=== PATIENT | male | born 1965 | race Asian ===

== ENCOUNTER 2022-12-10 19:20 | Emergency (ER) | payer OTHER, SELFPAY ==
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
[2022-12-10 19:43] VITALS: BP 138/74; PULSE 75; RESP 18; O2SAT 98; BMI 27.1
[2022-12-10] MEDS: Ketorolac Tromethamine 30 MG/ML VIAL IM (19:54)
[2022-12-10] MEDS: Lidocaine 4 % Patch ADH..PATCH 1 PATCH TRANSDERMA (19:57)
--- NOTE | 2022-12-10 20:00 | PC.NURSE ---
pt medicated per AUG for
== END 2022-12-10 20:17 | disposition home or self-care (01) ==
PROVIDERS: Emergency Provider Emergency Medicine
DX: Z04.1 Encounter for examination and observation following transport accident (principal); M54.50 Low back pain, unspecified; M54.2 Cervicalgia
CPT/HCPCS: 96372; 99283; 99284; J1885

== ENCOUNTER 2023-02-26 13:24 | Outpatient (AMB) | payer OTHER, SELFPAY ==
--- NOTE | 2023-02-26 13:26 | A.OFFPC_ITS ---
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 Transferring care from Dr Hinojosa Medical records have not been requested and have received. Manager Lvn Required: No Communication Signals Intelligence: Not Required per policy Accompanied by: Self / Same As Patient Allergies No Known Allergies Allergy (Verified 02/26/23 13:41) Medication List - Last Reconciled 02/26/23 by ARELI Adams No Known Home Meds Tobacco use date assessed: 02/26/23 Dental Screening Dental Screen Date: 02/26/23 Did you have a dental visit in the last 12 months?: No Did you have a dental problem in the last 6 months where you did not have access to dental care?: No Was dental information given to patient?: Patient has dentist HPI HPI Comments History of Present Illness Details 58-year-old male new patient presents today to establish care. Past medical history significant for hypercholesteremia. Patient reports dry itchy skin to left side and right upper thigh on going for months. Patient denies any new lotions, creams, soaps, detergents or medications. Patient reports uses hezo-fpl-jqwcajo hydrocortisone cream as needed with minimal effect. Patient denies chest pain, palpitations, shortness of breath and syncope. Eye exam: Recommended every couple years. Colonoscopy: Completed by Dr. Matthews 05/2019, recommended 5 year follow-up due to suboptimal exam. [facility], [facility] Family History (Updated 02/26/23 @ 13:43 by ARELI Adams) Mother No problems noted. 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 1. Little interest or pleasure in doing things: not at all 2. Feeling down, depressed, or hopeless: not at all 3. Trouble falling or staying asleep, or sleeping too much: not at all 4. Feeling tired or having little energy: not at all 5. Poor appetite or overeating: not at all 6. Feeling bad about yourself - or that you are a failure or have let yourself or your family down: not at all 7. Trouble concentrating on things, such as reading the newspaper or watching television: not at all 8. Moving or speaking so slowly that other people could have noticed. Or the opposite - being so fidgety or restless that you have been moving around a lot more than usual: not at all 9. Thoughts that you would be better off or of hurting yourself in some way: not at all Total score: 0 Depression Screening Interpretation: Negative 05546 - PHQ-9 Billing: Yes Source: Developed by Drs. Matt Kennedy, Renetta Chand, Candido Gayle and colleagues, with an educational jayshree from [employer]. Thrive Questionnaire Date Thrive assessed: 02/26/23 I am a: Patient What is your living situation today?: I have a steady place to live Within the past 12 months, did the food you bought not last and you didn't have the money to get more?: Never true Within the past 12 months, did you worry whether your food would run out before you got money to buy more?: Never true Do you have trouble paying for medicines?: No Do you have trouble getting transportation to medical appointments?: No Do you have trouble paying your heating and electricity bill?: No Do you have trouble taking care of your child, family member or friend?: No Do you have trouble with day-to-day activities such as bathing, preparing meals, shopping, managing finances, etc.?: No Are you currently unemployed and looking for a job?: No Are you interested in more education?: No Currently or been in a relationship where the following occur: no concerns reported AUDIT C Alcohol Use Questionnaire (AUDIT-C) 1. How often do you have a drink containing alcohol?: Never Total Score: 0 SEAN-7 AMB Questionnaire SEAN-7 Date SEAN - 7 assessed: 02/26/23 Feeling nervous, anxious, or on edge: 0 = Not at all Not being able to stop or control worryin = Not at all Worrying too much about different things: 0 = Not at all Trouble relaxin = Not at all Being so restless that it is hard to sit still: 0 = Not at all Becoming easily annoyed or irritable: 0 = Not at all Feeling afraid as if something awful might happen: 0 = Not at all Total SEAN-7 score (0-4 normal; 5-9 mild; 10-14 moderate; 15-21 severe): 0 Source: Developed by Drs. Matt Kennedy, Renetta Chand, Candido Gayle and colleagues, with an educational jayshree from [employer]. SEAN-7 Assessment Billing SEAN-7 Assessment Tool: SEAN-7 Assessment 16991 Review of Systems Const Denies chills, Denies fatigue, Denies fever(s) and Denies poor appetite Eyes Denies no additional complaints ENT Reports Normal hearing present Card Denies chest pain, Denies syncope, Denies rapid heart rate and Denies dyspnea Resp Denies cough and Denies dyspnea GI Denies change in stool character, Denies constipation, Denies diarrhea, Denies nausea and Denies vomiting Denies dysuria, Denies urinary frequency and Denies urinary urgency Skin/Breast Reports dry skin (Left side and right upper thigh ) Neuro Reports Normal hearing present, Denies confusion and Denies syncope Psych Denies confusion Endo Denies fatigue Physical exam (Primary Care) Vital Signs: Last Vital Signs Pulse 71 02/26/23 13:28 BP 130/74 02/26/23 13:28 Pulse Ox 96 02/26/23 13:28 Oxygen Delivery Method Room Air 02/26/23 13:28 BMI result Body Mass Index 27.0 Tobacco/Smoking Status: Tobacco use Status Tobacco use date assessed 02/26/23 02/26/23 13:36 Patient Tobacco Use Status Never used Tobacco 02/26/23 13:44 e-Cigarette/Vaping Use Never Used 02/26/23 13:44 PHQ-9: PHQ-9 Score PHQ-9: Total score 0 02/27/23 05:58 Depression Screening Interpretation: Negative Thrive Assessment: Date of Thrive Assessment Date Thrive assessed 02/26/23 02/26/23 13:36 Currently or been in a relationship where the following occur: no concerns reported Const General: No confusion Orientation/consciousness: No confusion HENMT Head: Yes normocephalic and Yes atraumatic Ears: external ears normal and TM's normal bilaterally General nose exam: Normal external nose present and Normal nasal mucous membranes and turbinates present Face and sinus: Yes normal facial exam and Yes sinuses nontender Mouth: moist mucous membranes Throat: Yes tonsils normal Eyes Conjunctivae: conjunctivae normal Sclerae: sclerae normal Pupils: Equal, round and reactive pupils present and Pupils normal by confrontation EOM: EOMs intact bilaterally Direct Ophthalmoscopy: normal light reflex Neck Neck: Yes no lymphadenopathy and Yes supple Thyroid: Thyroid normal Chest Chest palpation & inspection: normal inspection of the chest Resp Effort & Inspection: normal respiratory effort Auscultation: clear to auscultation bilaterally, no crackles, no rhonchi and no wheezes Cardio Rate: regular rate Rhythm: regular rhythm Peripheral pulses: radial pulses present and dorsalis pedis present GI Inspection: Yes normal to inspection Palpation (GI): Soft to palpation, nontender and No hepatosplenomegaly present Auscultation: normoactive bowel sounds Skin Other: Dry appearing hyperpigmented skin noted to left abdomen wrapping around to left flank and noted on right upper thigh Neuro General: No confusion Cranial nerves: Yes Equal, round and reactive pupils present and Yes Normal hearing present Cognition (Neuro): normal cognition Gait exam (Neuro): Normal gait present Motor exam (neuro): 5/5 motor strength present throughout Deep tendon reflexes (DTR's): Right brachioradialis reflex intensity grade: 2+, Left brachioradialis reflex intensity grade: 2+, Right patellar reflex intensity grade: 2+ and Left patellar reflex intensity grade: 2+ Extrem General: No edema Assessment and Plan Assessment & Plan (1) Dermatitis: Code(s): L30.9 - Dermatitis, unspecified Plan: Triamcinolone cream b.i.d. x 2 weeks sent to patient's pharmacy. If no improvement patient advised to follow-up. (2) Hypercholesteremia: Code(s): E78.00 - Pure hypercholesterolemia, unspecified Plan: Fasting lipid panel ordered. Avoid fried foods, chicken skin, eggs, butter,margarine, pastries and? red meat. (3) Physical exam, annual: Code(s): Z00.00 - Encounter for general adult medical examination without abnormal findings Orders: Orders Comprehensive [place]. Panel Fast 02/26/23 Z13.1 - Encounter for screening for diabetes mellitus Lipid Panel 02/26/23 Z13.220 - Encounter for screening for lipoid disorders TSH reflex Free T4 02/26/23 Z13.29 - Encounter for screening for other suspected endocrine disorder Complete Blood Count Auto Diff 02/26/23 Z13.0 - Encounter for screening for diseases of the blood and blood-forming organs and certain disorders involving the immune mechanism PSA,Total (Free>4and<10) Today Z12.5 - Encounter for screening for malignant neoplasm of prostate Medications: New triamcinolone acetonide 0.025% 1 appl topical BID 15 grams 0RF L30.9 - Dermatitis, unspecified, Z00.00 - Encounter for general adult medical examination without abnormal findings Coding Level of Care Code New Pt Prev Care 40-64y(27132) Diagnoses Dermatitis L30.9 Hypercholesteremia E78.00 Physical exam, annual Z00.00 Additional Codes SEAN-7 Assessment Billing - SEAN-7 Assessment Tool: SEAN-7 Assessment 79773 ([id number])
[2023-02-26 13:28] VITALS: BP 130/74; PULSE 71; O2SAT 96; BMI 27.0
== END 2023-02-26 14:37 | disposition home or self-care (01) ==
PROVIDERS: Visit Provider Nurse Practitioner Family
DX: L30.9 Dermatitis, unspecified (principal); E78.00 Pure hypercholesterolemia, unspecified; Z00.00 Encounter for general adult medical examination without abnormal findings
CPT/HCPCS: 99386

== ENCOUNTER 2023-03-07 13:01 | Outpatient (REF) | payer OTHER, SELFPAY ==
[2023-03-07 13:14] LABS: MANUAL DIFF FLAG NO
[2023-03-07 13:53] LABS: Basophils Percent Auto 0.3 % (0-2); Eosinophils Absolute Auto 0.2 X10*3/uL (0.0-0.4); Eosinophils Percent Auto 3.3 % (0-4); Hematocrit 43.6 % (42.0-52.0); Hemoglobin 14.6 g/dl (14.0-18.0); Imm Gran Abs Auto 0.03 X10*3/uL (0.00-0.03); Imm Gran Pct Auto 0.5 % (0.0-0.4); Lymphocytes Absolute Auto 2.5 X10*3/uL (1.2-4.9); Mean Corpuscular HGB Conc 33.5 g/dl (31.0-36.0); Mean Corpuscular Volume 83.7 fL (80.0-98.0); Mean Platelet Volume 10.3 fL (9.4-12.4); Monocytes Absolute Auto 0.4 X10*3/uL (0.1-1.2); Monocytes Percent Auto 6.1 % (2-11); Neutrophils Percent Auto 48.8 % (45-73); Platelet Count 159 X10*3/uL (160-400); Red Blood Count 5.21 X10*6/uL (4.60-5.80); Red Cell Distribution Width 13.2 % (11.0-16.0); White Blood Count 6.1 X10*3/uL (4.8-10.8)
[2023-03-07 14:42] LABS: PSA,Total (Free>4and<10) 0.91 ng/mL (0.00-4.00)
[2023-03-07 14:52] LABS: Alanine Aminotransferase 17 U/L (0-40); Albumin Level 4.4 g/dL (3.5-5.0); Alkaline Phosphatase 58 U/L (39-117); Anion Gap 9 (12-20); Aspartate Amino Transferase 18 U/L (5-37); Bilirubin Total 0.5 mg/dL (0.0-1.0); Blood Urea Nitrogen 22 mg/dL (9-16); Calcium 9.8 mg/dL (8.4-10.2); Carbon Dioxide 28 mmol/L (22-29); Chloride 110 mmol/L (96-108); Cholesterol 251 mg/dL (<200); Estimated Glomerular Filt Rate > 60; Glucose Fasting 94 mg/dL (60-99); HDL Cholesterol 49 mg/dL (>40); LDL Cholesterol Calculated 183 mg/dL (<100); Potassium 4.2 mmol/L (3.3-5.1); Sodium 143 mmol/L (135-145); TSH reflex Free T4 1.83 uIU/mL (0.32-4.0); Total Protein 7.4 g/dL (6.5-8.0); Triglycerides 97 mg/dL (<150)
== END 2023-03-07 13:02 | disposition home or self-care (01) ==
LOC: HO.LAB 13:01
PROVIDERS: PCP Nurse Practitioner Family; Visit Provider Nurse Practitioner Family
DX: Z13.220 Encounter for screening for lipoid disorders (principal); Z13.0 Encounter for screening for diseases of the blood and blood-forming organs and certain disorders involving the immune mechanism; Z13.29 Encounter for screening for other suspected endocrine disorder; Z12.5 Encounter for screening for malignant neoplasm of prostate
CPT/HCPCS: 36415; 80053; 80061; 84153; 84443; 85025

== ENCOUNTER 2023-05-05 13:49 | Emergency (ER) | payer OTHER, SELFPAY ==
--- NOTE | ~2023-05-05 | XR_ITS ---
EXAMINATION: CHEST 2 VIEWS CLINICAL INFORMATION: cough. COMPARISON: No recent pertinent prior studies are available for comparison. TECHNIQUE: PA and lateral views of the chest obtained. FINDINGS: The lungs are well expanded. No focal infiltrate, effusion, edema, or pneumothorax. Cardiac and mediastinal silhouettes are within normal limits for technique. No acute bony abnormality seen XR/XR chest 2V IMPRESSION: No evidence of acute disease
[2023-05-05 13:59] VITALS: BP 165/91; PULSE 82; RESP 18; TEMP 37.1; O2SAT 99; BMI 27.1
--- NOTE | 2023-05-05 14:00 | ED_ITS ---
HPI - URI/Sore Throat General Chief Complaint: Upper Respiratory Symptoms Stated Complaint: Cough/Fever Time Seen by Provider: 05/05/23 14:10 History of Present Illness HPI Narrative: patient complains of cold symptoms for 5 days, main complaint is congestion and runny nose with a mild cough not productive of sputum no shortness of breath no chest pain, a very mild sore throat but he is tolerating p.o. easily drinking easily, no nausea vomiting or diarrhea no stiff neck no headache Related Data Previous Rx's Medication Instructions Recorded triamcinolone acetonide 0.025 % 1 appl topical BID #15 grams 02/26/23 topical cream oxymetazoline 0.05 % nasal spray 2 spray intranasal Q12H PRN nasal 05/05/23 congestion 5 days #22 mL Allergies Allergy/AdvReac Type Severity Reaction Status Date / Time No Known Allergies Allergy Verified 05/05/23 13:59 [facility] Past Medical History Source: nursing notes reviewed Family History Family History (Updated 02/26/23 @ 13:43 by ARELI Adams) Mother No problems noted. 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 Cognitive needs: No Hearing needs: No Vision needs: Yes (glasses) Physical Exam Vital Signs: Vital Signs: Last Vital Signs Temp 98.7 F 05/05/23 13:59 Pulse 82 05/05/23 13:59 Resp 18 05/05/23 13:59 BP 165/91 H 05/05/23 13:59 Pulse Ox 99 05/05/23 13:59 O2 Del Method Room Air 05/05/23 13:59 BMI result Body Mass Index 27.1 general appearance comfortable no distress The ears are clear no redness of tympanic membranes no perforated membrane no swelling of canal Eyes no redness or discharge The pharynx no redness swelling or exudate voice is normal membranes are moist Neck is supple Chest clear to auscultation with full symmetric equal breath sounds Heart no murmur Abdomen soft nontender Extremities range motion x4 Skin no obvious rash Course Course Course Narrative: RME: 58yo M w/no sig PMHx c/o sore throat, rhinorrhea, subj fever, productive cough. denies CP Viral testing, Rapid strep & CXR ordered Full HPI, ROS and PE to be performed by primary ED provider. testing for COVID flu and strep are negative, chest x-rays negative Physical exam was normal, main complaint was runny nose and congestion and patient is advised he likely has a viral illness and well-appearing patient is discharged Medical Decision Making Lab Data Labs: Lab Results 05/05/23 Range/Units 14:11 COVID-19 (ALYSE) Negative (Negative) COVID-19 Clin Com See Note Influenza Type A (EJ) Negative (Negative) Influenza Type B (EJ) Negative (Negative) Influenza A & B Note See Note S. pyogenes GrpA EJ Negative (Negative) Discharge Plan Discharge Clinical Impression: Viral infection Patient Disposition: Home, Self-Care Additional Instructions: you likely have of viral infection or a cold which has to get better on its own usually in 1-2 weeks from when it starts You were written for some allergy medicines cetirizine and Flonase which is a steroid spray for allergies The best nquz-igo-ajrnkad medication for nasal congestion is oxymetazoline which is a nasal spray which lasts for 12 hours and usually will clear nasal congestion for up to 12 hours The problem is some people get a rebound effect where if use the medication for too long, more than 5 days it may actually worsen nasal congestion So use the medication for 5 days or less Return any time any worse condition or concern Follow with her doctor as needed Prescriptions: New oxymetazoline 0.05 % spray,non-aerosol 2 spray intranasal Q12H PRN (Reason: nasal congestion) 5 Days Qty: 22 0RF No Action triamcinolone acetonide 0.025 % cream 1 appl topical BID Qty: 15 0RF
--- NOTE | 2023-05-05 14:11 | ED.URI ---
HPI - URI/Sore Throat General Chief Complaint: Upper Respiratory Symptoms Stated Complaint: Cough/Fever Time Seen by Provider: 05/05/23 14:10 History of Present Illness HPI Narrative: There is already sign note for this patient in the computer for this visit by me Related Data Previous Rx's Medication Instructions Recorded triamcinolone acetonide 0.025 % 1 appl topical BID #15 grams 02/26/23 topical cream oxymetazoline 0.05 % nasal spray 2 spray intranasal Q12H PRN nasal 05/05/23 congestion 5 days #22 mL Allergies Allergy/AdvReac Type Severity Reaction Status Date / Time No Known Allergies Allergy Verified 05/05/23 13:59 [facility] Family History Family History (Updated 02/26/23 @ 13:43 by ARELI Adams) Mother No problems noted. 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 pyogenes GrpA EJ Negative (Negative) Discharge Plan Discharge Clinical Impression: Viral infection Patient Disposition: Home, Self-Care Additional Instructions: you likely have of viral infection or a cold which has to get better on its own usually in 1-2 weeks from when it starts You were written for some allergy medicines cetirizine and Flonase which is a steroid spray for allergies The best ttlj-ita-qcivibj medication for nasal congestion is oxymetazoline which is a nasal spray which lasts for 12 hours and usually will clear nasal congestion for up to 12 hours The problem is some people get a rebound effect where if use the medication for too long, more than 5 days it may actually worsen nasal congestion So use the medication for 5 days or less Return any time any worse condition or concern Follow with her doctor as needed Prescriptions: New oxymetazoline 0.05 % spray,non-aerosol 2 spray intranasal Q12H PRN (Reason: nasal congestion) 5 Days Qty: 22 0RF No Action triamcinolone acetonide 0.025 % cream 1 appl topical BID Qty: 15 0RF Interventions: ED Discharge Assessment Last Done: 05/05/23 15:31 Discharge Date/Time: 05/05/23 15:32
[2023-05-05 14:35] LABS: IDNOW Serial# 08D9AD1C; Strep A Nucleic Acid Negative (Negative)
[2023-05-05 14:36] LABS: COVID-19 Test Negative (Negative); IDNOW Serial# BCCEAD1C
[2023-05-05 14:38] LABS: IDNOW Serial# 9DB6401D; Influenza A Negative (Negative); Influenza B2 Negative (Negative)
== END 2023-05-05 15:32 | disposition home or self-care (01) ==
PROVIDERS: Physician Assistant; Emergency Provider Emergency Medicine; PCP Nurse Practitioner Family
DX: B34.9 Viral infection, unspecified (principal); R05.9 Cough, unspecified; Z11.52 Encounter for screening for COVID-19
CPT/HCPCS: 71046; 87502; 87635; 87651; 99282; 99283

== ENCOUNTER 2023-07-18 16:13 | Emergency (ER) | payer OTHER, SELFPAY ==
--- NOTE | ~2023-07-18 | XR_ITS ---
EXAMINATION: XR WRIST, LEFT XR HAND, LEFT CLINICAL INFORMATION: Fall COMPARISON: None available. TECHNIQUE: PA, lateral, and oblique views of the left wrist and PA, lateral, and oblique views of the left hand FINDINGS: LEFT WRIST: There is a comminuted intra-articular fracture involving the distal radius with minimal displacement of fracture fragments and no significant fracture fragment angulation. No ulnar fracture is seen. LEFT HAND: The bones and soft tissues are normal. No fracture. Alignment is anatomic. Joint spaces are maintained. No erosions or soft tissue calcifications. XR/XR hand wrist LT IMPRESSION: Comminuted intra-articular fracture involving the distal radius with minimal displacement of fracture fragments and no significant fracture fragment angulation.
[2023-07-18 16:50] VITALS: BP 117/68; PULSE 77; RESP 16; TEMP 36.6; O2SAT 99; BMI 25.8
--- NOTE | 2023-07-18 16:52 | ED.EXTPRO ---
HPI - Extremity Problem General Chief complaint: Extremity Injury, Upper Stated complaint: fell, left wrist injury Time Seen by Provider: 07/18/23 17:05 Source: patient, RN notes reviewed and old records reviewed Mode of arrival: ambulatory History of Present Illness HPI Narrative: 58-year-old male with a past medical history of HLD presenting to the ED complaining of left hand/wrist pain and swelling s/p mechanical trip and fall on ice this morning around 08:00AM. States slipped falling backwards, catching self with LUE, denies head trauma or LOC. Denies taking anticoagulation. Denies injury to other area including neck/back pain, headache, abdominal pain, numbness, tingling MD Complaint: extremity pain and extremity swelling Related Data Previous Rx's Medication Instructions Recorded triamcinolone acetonide 0.025 % 1 appl topical BID #15 grams 02/26/23 topical cream oxymetazoline 0.05 % nasal spray 2 spray intranasal Q12H PRN nasal 05/05/23 congestion 5 days #22 mL Allergies Allergy/AdvReac Type Severity Reaction Status Date / Time No Known Allergies Allergy Verified 05/05/23 13:59 Review of Systems Review of Systems: Constitutional: No Fever, No Chills ENT/Mouth: No Ear Pain, No Nasal Congestion, No sore throat, No Rhinorrhea, No Swallowing Difficulty Cardiovascular: No Chest Pain, No SOB Respiratory: No Cough Gastrointestinal: No Nausea, No Vomiting, No Diarrhea, No Constipation, No Abdominal pain Musculoskeletal: + joint pain, No Myalgias, + Joint Swelling Skin: No Skin Lesions, No rash Neuro: No Weakness, No Numbness, No Paresthesias Yes all other systems are reviewed and are negative Constitutional: Constitutional: Reports as per [facility] [place] Past Medical History Attestation statement: The following information was validated with the patient. Source: old records reviewed Onset Date is defined in the Problem List Problems that require an onset date and time if occurred within 24 hrs of arrival to the ED Aortic Dissection and Rupture; Neurologic impairment; Cardiopulmonary Arrest; Endotracheal Intubation; Insertion or Replacement of Mechanical Circulatory Assist Device Family History Family History Mother No problems noted. 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 Cognitive needs: No Hearing needs: No Vision needs: Yes (glasses) Physical Exam Vital Signs: Vital Signs: Last Vital Signs Temp 98 F 07/18/23 16:50 Pulse 76 07/18/23 17:00 Resp 16 07/18/23 18:36 BP 113/72 07/18/23 17:00 Pulse Ox 97 07/18/23 17:00 O2 Del Method Room Air 07/18/23 17:00 BMI result Body Mass Index 25.8 Const: General: cooperative, healthy appearing and no acute distress Orientation/consciousness: patient oriented x3 Limitations: no limitations HEENT: Head: Yes normal to inspection and Yes atraumatic Ears: hearing grossly normal bilaterally General nose exam: Normal external nose present Face and sinus: Yes normal facial exam Eyes: General: appearance normal, both eyes and all related structures EOM: EOMs intact bilaterally Neck: Neck: Yes normal visual inspection and Yes no meningeal signs Resp: Effort & Inspection: normal respiratory effort and no respiratory distress Auscultation: clear to auscultation bilaterally Cardio: Rate: regular rate Heart sounds: S1 normal heart sound present and S2 normal heart sound present Skin: Rashes: no rashes Wounds: no wounds Neuro: General: patient oriented x3, tone normal and no meningeal signs Cranial nerves: Yes CN's II-XII intact bilaterally Gait exam (Neuro): Normal gait present Extrem: Other: Left wrist with noted swelling/deformity. Diffusely tender to palpation. Limited ROM secondary to pain. Left hand with mild tenderness. Decreased thumb to pinky opposition secondary to pain. Neurovascularly intact. No crepitus. Left elbow nontender. Extension/flexion and pronation/supination intact. Shoulder nontender Course Course Course Narrative: RME- 58-year-old male presents for evaluation of left hand and wrist pain after falling on an outstretched hand. He slipped on the ice. Denies any head strike XR hand wrist LT IMPRESSION: Comminuted intra-articular fracture involving the distal radius with minimal displacement of fracture fragments and no significant fracture fragment angulation. > sugar-tong splint applied. Patient is to follow-up with orthopedics Results discussed with patient including worrisome signs and symptoms and strict return precautions, and when to return to the emergency department. They verbalized understanding and feel safe for discharge at this time. Medications Administered Discontinued Medications Generic Name Dose Route Start Last Admin Trade Name Freq PRN Reason Stop Dose Admin Ibuprofen 800 mg 07/18/23 17:27 07/18/23 17:34 Ibuprofen 800 Mg Tablet PO 07/18/23 17:28 800 mg ONCE ONE Administration Medical Decision Making Medical Decision Making MDM Narrative: 58-year-old male with a past medical history of HLD presenting to the ED complaining of left hand/wrist pain and swelling s/p mechanical trip and fall on ice this morning around 08:00AM. On exam vital signs stable, NAD, nontoxic appearing, physical exam as noted above. Concern for fracture versus sprain. Plan: X-rays, pain control Please refer to course for remaining clinical decision making, interpretation of labs/imaging results, and discussions with consultants and/or family members. Differential Diagnosis Differential Diagnoses: The differential diagnosis associated with the presentation includes As above Independent Interpretation I performed an independent interpretation of an: Plain X-Ray Radiology Impression Discussion of test interpretation with radiology: I have reviewed the radiologist's reading. External Record Review External record reviewed: Inpatient record, Office record, Outpatient record, Prior outpatient labs, Prior outpatient radiology, Primary care record and Outside ED record Tests considered The following testing was considered but not selected: As above Prescription Management I considered prescription management with: Pain Medication Procedures Orthopedic Splinting/Casting Injury #1: Side: left Upper Extremity Injury Location: wrist Upper Extremity Immobilizer: sling/shoulder immobilizer and sugar tong splint Discharge Plan Discharge Clinical Impression: Distal radial fracture Patient Disposition: Home, Self-Care Instructions: Wrist Fracture in Adults (ED) Additional Instructions: You have a fracture/broken wrist. Please keep splint on, dry and clean Ice and elevate You need to follow-up with Orthopedics, please call in the morning to make an appointment in 1 week. Please take Tylenol and Motrin for pain/swelling If fingers become increasingly swollen, numb, or discolored her pain is unbearable remove splint return to the ED immediately Prescriptions: No Action oxymetazoline 0.05 % spray,non-aerosol 2 spray intranasal Q12H PRN (Reason: nasal congestion) 5 Days Qty: 22 0RF triamcinolone acetonide 0.025 % cream 1 appl topical BID Qty: 15 0RF Referrals: [facility] [Provider Group] - 1 week
[2023-07-18 17:00] VITALS: BP 113/72; PULSE 76; RESP 18; O2SAT 97
[2023-07-18] MEDS: Ibuprofen 800 MG TABLET PO (17:34)
--- NOTE | 2023-07-18 17:35 | PC.NURSE ---
this rn medicated pt per aug for 9/10 left hand pain.
[2023-07-18 18:36] VITALS: RESP 16
== END 2023-07-18 19:35 | disposition home or self-care (01) ==
PROVIDERS: Emergency Provider Emergency Medicine; PCP Nurse Practitioner Family
DX: S52.502A Unspecified fracture of the lower end of left radius, initial encounter for closed fracture (principal); M25.532 Pain in left wrist; W00.0XXA Fall on same level due to ice and snow, initial encounter; Y93.9 Activity, unspecified; Y92.9 Unspecified place or not applicable; Y99.9 Unspecified external cause status
CPT/HCPCS: 29125; 73110; 73130; 99283; 99284

== ENCOUNTER 2023-07-25 10:19 | Outpatient (AMB) | payer OTHER, SELFPAY ==
--- NOTE | 2023-07-25 10:26 | MHC.OFFVIS ---
Intake Vital Signs 07/25/23 10:27 Height 5 ft 8 in Weight 170 lb BMI 25.8 Intake Visit Reasons: fc- Distal radial fracture left Intake Note: Taylor a 58 year old male who is right hand dominant, presents today for an ER follow up of right distal radial fx on 07/18/23. Patient reports that he tripped and fell on ice, he presented to [facility] the same day where xrays were taken and placed in a splint. Currently states his pain is very mild. Denies numbness or tingling. Xrays updated in office. Allergies No Known Allergies Allergy (Verified 07/25/23 10:28) HPI fc- Distal radial fracture left HPI Details 58-year-old right hand dominant male who presents to the office today for an ER follow-up of right wrist injury s/p tripping and falling on ice, 07/18/23. He was seen at ER the same day where x-rays were performed and he was placed in a splint. He currently states he has minimal pain in his wrist which comes with ROM. He rates the pain as about 2 on the scale of 0-10. He denies any numbness or tingling. [facility] Family History Mother No problems noted. 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 There is trace swelling and bruising over the distal radius with tenderness over the fracture site. There is no pain over the elbow, negative forearm squeeze test. He has full range of motion of the elbow. He can fully extend all digits and make a closed fist. Pulses are present and she is neurovascularly intact. Office Procedures Casting/Splints 23378-Vxth/Wrist Cast Application Procedure code (CPT) selection complete Fracture Care Fracture Billing Code: Fracture Billing Code Results Reviewed Results Reviewed: Xrays were obtained in the office today and personally reviewed by me of the left wrist show minimally dispalced, intraarticular distal radius fracture Assessment & Plan Assessment & Plan (1) Distal radius fracture, left: Code(s): S52.502A - Unspecified fracture of the lower end of left radius, initial encounter for closed fracture Qualifiers: Encounter type: initial encounter Fracture type: closed Fracture morphology: unspecified fracture morphology Qualified Code(s): S52.502A - Unspecified fracture of the lower end of left radius, initial encounter for closed fracture Plan I explained to the patient the extent of the injury and options available. We can treat this conservatively but will have to watch him very closely to make sure there is no displacement. He would have to do no lifting more than a cell phone. This would mean no lifting, carrying, pushing, pulling, or repetitive use of the right upper extremity at work/home. I did explain to him that conservative treatment would likely be a cast for 6 weeks. If there is some displacement that occurs, we may need to discuss surgical intervention which could require pinning versus plate and screws. I also educated him on the risk factors of smoking and the effect that it can have on bone healing. He does understand all this and will see me back in a week with Dr. Ni in the office for repeat x-rays. Orders: Orders XR wrist LT min 3V Today M25.532 - Pain in left wrist Patient Instructions: Scribed for Vianca Choudhury PA-C, by Dirk Loja vice president medical affairs, on 07/25/2023 at 10:30 AM EST. IVianca PA-C, have personally reviewed and agree with the information entered by the scribe. Coding Level of Care Code New Pt Level 3 (88998) Diagnoses Closed fracture of distal end of left radius, unspecified fracture morphology, initial encounter S52.502A Encounter type: initial encounter Fracture type: closed Fracture morphology: unspecified fracture morphology CPT Codes Casting - CPT: 40102-Lbxl/Wrist Cast Application ([id number]) Fracture Care - Fracture Billing Code: Fracture Billing Code ([id number])
[2023-07-25 10:27] VITALS: BMI 25.8
== END 2023-07-25 11:33 | disposition home or self-care (01) ==
PROVIDERS: PCP Nurse Practitioner Family; Visit Provider Physician Assistant
DX: S52.572A Other intraarticular fracture of lower end of left radius, initial encounter for closed fracture (principal)
CPT/HCPCS: 25600; 99203

== ENCOUNTER 2023-07-25 14:45 | Outpatient (REF) | payer OTHER, SELFPAY ==
--- NOTE | ~2023-07-25 | XR_ITS ---
EXAMINATION: XR WRIST, LEFT CLINICAL INFORMATION: Pain COMPARISON: Radiographs 07/18/2023 TECHNIQUE: PA, lateral, and oblique views of the left wrist. FINDINGS: Again seen is a intra-articular mildly comminuted fracture of the distal radius in unchanged alignment without significant periosteal reaction or bridging bony callus formation. Joint spaces are maintained. Soft tissues are unremarkable. XR/XR wrist LT min 3V IMPRESSION: Again seen is a intra-articular mildly comminuted fracture of the distal radius in unchanged alignment without significant periosteal reaction or bridging bony callus formation.
== END 2023-07-25 14:46 | disposition home or self-care (01) ==
LOC: HO.HOSX 14:45
PROVIDERS: Visit Provider Physician Assistant
DX: M25.532 Pain in left wrist (principal); S52.502A Unspecified fracture of the lower end of left radius, initial encounter for closed fracture; X58.XXXA Exposure to other specified factors, initial encounter; Y93.9 Activity, unspecified; Y92.9 Unspecified place or not applicable; Y99.9 Unspecified external cause status
CPT/HCPCS: 25600; 73110; 99202

== ENCOUNTER 2023-07-31 10:03 | Outpatient (REF) | payer OTHER, SELFPAY ==
--- NOTE | ~2023-07-31 | XR_ITS ---
EXAMINATION: XR WRIST, LEFT CLINICAL INFORMATION: Pain in left wrist COMPARISON: Left wrist 07/18/2023, 07/25/2023 TECHNIQUE: PA, lateral, and oblique views of the left wrist. FINDINGS: Again seen is the intra-articular mildly comminuted fracture of the distal radius. This is unchanged in position and alignment. No significant periosteal reaction or bridging bony callus. Joint spaces are maintained. Soft tissues are unremarkable. XR/XR wrist LT min 3V IMPRESSION: No change in position or alignment of intra-articular mildly comminuted fracture of the distal radius without significant periosteal reaction or bridging bony callus formation.
== END 2023-07-31 10:04 | disposition home or self-care (01) ==
LOC: HO.HOSX 10:03
PROVIDERS: Visit Provider Orthopaedic Surgery
DX: S52.502A Unspecified fracture of the lower end of left radius, initial encounter for closed fracture (principal); X58.XXXA Exposure to other specified factors, initial encounter; Y93.9 Activity, unspecified; Y92.9 Unspecified place or not applicable; Y99.9 Unspecified external cause status
CPT/HCPCS: 73110; 99212

== ENCOUNTER 2023-07-31 10:22 | Outpatient (AMB) | payer OTHER, SELFPAY ==
--- NOTE | 2023-07-31 10:25 | MHC.OFFVIS ---
Intake Vital Signs 07/31/23 10:34 Height 5 ft 8 in Weight 170 lb BMI 25.8 Intake Visit Reasons: OV-Distal radial fracture left-cast off w/xrays Intake Note: Taylor 58 yr male presents today for his follow up visit of left distal radial fx on 07/18/23. Patient reports that he tripped and fell on ice. Last seen with Ninoska Garnica who placed patient in a short arm cast. Patient cast removed in office , states no pain, numbness or tingling. Allergies No Known Allergies Allergy (Verified 07/31/23 10:33) HPI OV-Distal radial fracture left-cast off w/xrays HPI Details Taylor is a 58 year old right hand dominant man who presents to discuss his left distal radius fracture, from a fall on ice, DOI: 07/18/23. He was seen in the ED on the same day and placed in a short arm cast. He was seen by YANCI Choudhury on 07/25/23 and placed in a new cast. He presents today saying he is doing well, without any pain, numbness, or tingling. PFS Family History Mother No problems noted. 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 Cognitive needs: No Hearing needs: No Vision needs: Yes (glasses) Review of Systems Const All systems reviewed & are unremarkable except as noted in HPI and below Physical Exam Vital Signs: BMI result Body Mass Index 25.8 Const General: cooperative, healthy appearing and no acute distress Orientation/consciousness: patient oriented x3 HEENT Head: Yes normocephalic and Yes atraumatic Eyes EOM: EOMs intact bilaterally Resp Effort & Inspection: normal respiratory effort and able to speak in complete sentences Cardio Jugular venous distension: no JVD Skin General skin exam: turgor normal Rashes: no rashes Neuro General: patient oriented x3 Extrem Other: Evaluation of Left Upper Extremity: The patient is alert, oriented, and in no acute distress Normal sensation to all digits. He can make a fist and extend all of his digits. In clinic he was demonstrating some mild flexion and extension through about a 40 degree arc of motion as well as some prono-supination and said it does not hurt him. He has some resolving ecchymosis and some mild swelling at the wrist. No lacerations or evidence of open injury. Good range of motion at the elbow without pain. Radiographs: 3 views of the left wrist, plus a scaphoid view, were taken and viewed by me today in clinic. They show a comminuted intra-articular distal radius fracture with a central -punch fragment with a 3 mm step-off. Otherwise satisfactory alignment with Neutral alignment on the lateral view. Psych Appearance: grossly normal Affect: normal affect Attitude: cooperative Office Procedures Fracture Care Details: Fracture code distal radius fracture 06552 Fracture Billing Code: Fracture Billing Code Assessment & Plan Assessment & Plan (1) Distal radius fracture, left: Code(s): S52.502A - Unspecified fracture of the lower end of left radius, initial encounter for closed fracture Qualifiers: Encounter type: initial encounter Fracture type: closed Fracture morphology: unspecified fracture morphology Qualified Code(s): S52.502A - Unspecified fracture of the lower end of left radius, initial encounter for closed fracture Plan Assessment & Plan: 1. 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 I recommend we continue to manage this non-operatively, and the patient also wishes to manage this non operatively. I did explain that because of the nature of this injury to the articular surface that he is at an increased risk to get arthritis in this wrist. I did talk to him about activity modification and being careful not to do unnecessarily heavy activities or impact activities with this wrist even in the future to lessen the chances of getting arthritis in this wrist.. I educated him about the recovery timeline He was fitted for a velcro wrist splint, to be worn like a cast except for showering, for the next 4 weeks I discussed activity modifications, he is to lift nothing heavier than a cellphone for the next 4 weeks He will perform gentle ROM exercises at home He will follow up in 3-4 weeks, with X-rays, 3V L wrist He is happy with the current plan Scribed for Peg Ni MD by Xavi Horn, medical billing clerk, on 07/31/23 at 10:50 AM, EST. Orders: Orders XR wrist LT min 3V Today M25.532 - Pain in left wrist Coding Level of Care Code Est Pt Level 3 (33899) Diagnoses Closed fracture of distal end of left radius, unspecified fracture morphology, initial encounter S52.502A Encounter type: initial encounter Fracture type: closed Fracture morphology: unspecified fracture morphology CPT Codes Fracture Care - Fracture Billing Code: Fracture Billing Code ([id number])
[2023-07-31 10:34] VITALS: BMI 25.8
== END 2023-07-31 10:57 | disposition home or self-care (01) ==
PROVIDERS: PCP Nurse Practitioner Family; Visit Provider Orthopaedic Surgery
DX: S52.502A Unspecified fracture of the lower end of left radius, initial encounter for closed fracture (principal)
CPT/HCPCS: 99024

== ENCOUNTER 2023-08-28 10:34 | Outpatient (REF) | payer OTHER, SELFPAY ==
--- NOTE | ~2023-08-28 | XR_ITS ---
EXAMINATION: XR WRIST, LEFT CLINICAL INFORMATION: Pain. COMPARISON: Prior radiographs, most recently 07/31/2023. TECHNIQUE: PA, lateral, and oblique views of the left wrist. FINDINGS: Bony alignment and mineralization are normal. There is stable alignment of a nondisplaced fracture of the distal left radius, with intra-articular extension. The fracture line is less visible, with increased callus formation. No dislocation is seen. The proximal and distal carpal rows are intact. There is no bone erosion. No focal soft tissue swelling, gas or foreign body is seen. XR/XR wrist LT min 3V IMPRESSION: There is stable alignment of a nondisplaced fracture of the distal left radius. Again, the fracture line shows intra-articular extension. The fracture line is now faint, with increased callus.
== END 2023-08-28 10:35 | disposition home or self-care (01) ==
LOC: HO.HOSX 10:34
PROVIDERS: Visit Provider Orthopaedic Surgery
DX: S52.502D Unspecified fracture of the lower end of left radius, subsequent encounter for closed fracture with routine healing (principal)
CPT/HCPCS: 73110; 99212

== ENCOUNTER 2023-08-28 12:26 | Outpatient (AMB) | payer OTHER, SELFPAY ==
--- NOTE | 2023-08-28 12:42 | A.OFFVIS_ITS ---
Intake Vital Signs 08/28/23 12:43 Height 5 ft 8 in Weight 170 lb BMI 25.8 Intake Visit Reasons: DB-NA-Unleuu radial fracture left-cast off w/xrays Intake Note: Taylor 58 yr male presents today for his follow up visit of left distal radial fx on 07/18/23. States he is wearing his brace and his pain has improved however he has stiffness and mild discomfort. Xrays updated in office. Allergies No Known Allergies Allergy (Verified 08/28/23 12:43) HPI [id number] radial fracture left-cast off w/xrays HPI Details Taylor is a 58 year old right hand dominant man who returns to discuss his left distal radius fracture, from a fall on ice, DOI: 07/18/23. He says he is doing well, has been wearing his splint as instructed, and his pain has improved. He does report some mild stiffness in his wrist PFSH Family History Mother No problems noted. 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 He can make a fist and extend all of his digits. Good range of motion at the elbow without pain. Wrist ROM: Nearly symmetrical pronosupination without pain Flexion: ~25-30 degrees Extension: ~65 degrees I demonstrated some ROM exercises today in clinic DRUj stable on exam DRUJ, distal radius, and distal ulna all non-tender Radiocarpal joint non-tender Radiographs: 3 views of the left wrist, plus a scaphoid view, were taken and viewed by me today in clinic. They show a comminuted intra-articular distal radius fracture with a central -punch fragment with a 3 mm step-off. Otherwise satisfactory alignment with Neutral alignment on the lateral view & some evidence of interval bony healing. Psych Appearance: grossly normal Affect: normal affect Attitude: cooperative Assessment & Plan Assessment & Plan (1) Distal radius fracture, left: Code(s): S52.502A - Unspecified fracture of the lower end of left radius, initial encounter for closed fracture Qualifiers: Encounter type: initial encounter Fracture morphology: unspecified fracture morphology Fracture type: closed Qualified Code(s): S52.502A - Unspecified fracture of the lower end of left radius, initial encounter for closed fracture Plan Assessment & Plan: 1. 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 I did explain that because of the nature of this injury to the articular surface that he is at an increased risk to get arthritis in this wrist. I did talk to him about activity modification and being careful not to do unnecessarily heavy activities or impact activities with this wrist. I discussed activity modifications, he is to avoid any heavy lifting or impact activities for at least the next 4 weeks He will continue to wear his velcro wrist splint with heavy activities for the next 2 weeks. Otherwise he will be out of his splint. He will work on wrist ROM exercises at home, out of his splint I offered to refer him to OT hand therapy. He says he will work on ROM exercises at home, and does not want OT hand therapy He may contact his clinic for a referral if he changes his mind about therapy He is happy with the current plan. He will follow up prn. Scribed for Peg Ni MD by Xavi Horn, medical office worker, on 08/28/23 at 12:55 PM, EST. Orders: Orders XR wrist LT min 3V Today M25.532 - Pain in left wrist Coding Level of Care Code Global (35659) Diagnoses Closed fracture of distal end of left radius, unspecified fracture morphology, initial encounter S52.502A Encounter type: initial encounter Fracture morphology: unspecified fracture morphology Fracture type: closed
[2023-08-28 12:43] VITALS: BMI 25.8
== END 2023-08-28 12:56 | disposition home or self-care (01) ==
PROVIDERS: PCP Nurse Practitioner Family; Visit Provider Orthopaedic Surgery
DX: S52.502A Unspecified fracture of the lower end of left radius, initial encounter for closed fracture (principal)
CPT/HCPCS: 99024

== ENCOUNTER 2024-03-05 14:20 | Outpatient (AMB) | payer OTHER, SELFPAY ==
--- NOTE | 2024-03-05 14:23 | MHC.PC.OV ---
Vital Signs 03/05/24 14:24 Height 5 ft 8 in Weight 177 lb 8 oz BMI 27.0 BP 110/72 Blood Pressure Location Lt brachial Position Sitting Pulse 70 Pulse Source Pulse Oximeter Pulse Oximetry (%) 97 Oxygen Delivery Method Room Air Intake Visit Reasons: Annual Exam Intake Note: Patient is here today for a physical. Requesting for Dermatology referral for skin issue. 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 Interviewer: Not Required per policy Accompanied by: Self / Same As Patient Allergies No Known Allergies Allergy (Verified 03/05/24 15:06) Medication List - Last Reconciled 03/05/24 by Martinez Hudson MD No Known Home Meds Tobacco use date assessed: 03/05/24 Dental Screening Dental Screen Date: 03/05/24 Did you have a dental visit in the last 12 months?: No Did you have a dental problem in the last 6 months where you did not have access to dental care?: No Was dental information given to patient?: Patient has dentist HPI Annual Exam HPI Details 59-year-old male presents to the office requesting an annual physical. In addition patient would like to discuss his skin rashes. He has had them for many years. Dry skin and has been using [id number] cortisone with minimal relief. 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 No family history of heart or cancer disease. [facility] Surgical History No pertinent past surgical history Family History Mother No problems noted. 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 1. Little interest or pleasure in doing things: not at all 2. Feeling down, depressed, or hopeless: not at all 3. Trouble falling or staying asleep, or sleeping too much: several days 4. Feeling tired or having little energy: several days 5. Poor appetite or overeating: not at all 6. Feeling bad about yourself - or that you are a failure or have let yourself or your family down: not at all 7. Trouble concentrating on things, such as reading the newspaper or watching television: not at all 8. Moving or speaking so slowly that other people could have noticed. Or the opposite - being so fidgety or restless that you have been moving around a lot more than usual: not at all 9. Thoughts that you would be better off or of hurting yourself in some way: not at all Total score: 2 Depression Screening Interpretation: Positive Depression Screening Done: Yes Source: Developed by Drs. Matt Kennedy, Renetta Chand, Candido Gayle and colleagues, with an educational jayshree from [employer]. Thrive Questionnaire Date Thrive assessed: 03/05/24 I am a: Patient What is your living situation today?: I choose not to answer this question Within the past 12 months, did the food you bought not last and you didn't have the money to get more?: Never true Within the past 12 months, did you worry whether your food would run out before you got money to buy more?: Never true Do you have trouble paying for medicines?: No Do you have trouble getting transportation to medical appointments?: No Do you have trouble paying your heating and electricity bill?: No Do you have trouble taking care of your child, family member or friend?: No Do you have trouble with day-to-day activities such as bathing, preparing meals, shopping, managing finances, etc.?: No Are you currently unemployed and looking for a job?: No Are you interested in more education?: No Please select the resources that you would like help with: None Currently or been in a relationship where the following occur: No concerns reported THRIVE Score: 0 AUDIT C Alcohol Use Questionnaire (AUDIT-C) 1. How often do you have a drink containing alcohol?: Never Total Score: 0 SEAN-7 AMB Questionnaire SEAN-7 Date SEAN - 7 assessed: 03/05/24 Feeling nervous, anxious, or on edge: 0 = Not at all Not being able to stop or control worryin = Not at all Worrying too much about different things: 1 = Several days Trouble relaxin = Not at all Being so restless that it is hard to sit still: 0 = Not at all Becoming easily annoyed or irritable: 0 = Not at all Feeling afraid as if something awful might happen: 0 = Not at all Total SEAN-7 score (0-4 normal; 5-9 mild; 10-14 moderate; 15-21 severe): 1 Source: Developed by Drs. Matt Kennedy, Renetta Chand, Candido Gayle and colleagues, with an educational jayshree from [employer]. Physical exam (Primary Care) Vital Signs: Last Vital Signs Pulse 70 03/05/24 14:24 BP 110/72 03/05/24 14:24 Pulse Ox 97 03/05/24 14:24 Oxygen Delivery Method Room Air 03/05/24 14:24 BMI result Body Mass Index 27.0 Tobacco/Smoking Status: Tobacco use Status Tobacco use date assessed 03/05/24 03/05/24 14:30 Patient Tobacco Use Status Never used Tobacco 03/05/24 14:30 e-Cigarette/Vaping Use Never Used 03/05/24 14:30 PHQ-9: PHQ-9 Score PHQ-9: Total score 2 03/05/24 14:30 Depression Screening Interpretation: Positive Thrive Assessment: Date of Thrive Assessment Date Thrive assessed 03/05/24 03/05/24 14:30 Currently or been in a relationship where the following occur: No concerns reported Const General: cooperative and healthy appearing Nutritional Appearance: well nourished Orientation/consciousness: patient oriented x3 Limitations: no limitations HENMT Head: Yes normal to inspection Eyes General: appearance normal, both eyes and all related structures Neck Neck: Yes normal visual inspection Chest Chest palpation & inspection: normal palpation of entire chest wall Resp Effort & Inspection: normal respiratory effort Skin Other: Dull erythematous areas over his right thigh and left side of the chest. Dry skin. Neuro General: patient oriented x3 Assessment and Plan Assessment & Plan (1) Dermatitis: Code(s): L30.9 - Dermatitis, unspecified Plan: Skin lesions consistent with eczema. A dermatology appointment has been requested for long-term steroid medications. (2) Annual physical exam: Code(s): Z00.00 - Encounter for general adult medical examination without abnormal findings Plan: Blood work has been ordered. Will call with the results. Patient states that he has had a colonoscopy. His record will be verified at [facility]. Coding Level of Care Code New Pt Level 3 (71628) New Pt Prev Care 40-64y(35749) Diagnoses Dermatitis L30.9 Annual physical exam Z00.00
[2024-03-05 14:24] VITALS: BP 110/72; PULSE 70; O2SAT 97; BMI 27.0
== END 2024-03-05 15:43 | disposition home or self-care (01) ==
PROVIDERS: PCP Internal Medicine; Visit Provider Internal Medicine
DX: Z00.00 Encounter for general adult medical examination without abnormal findings (principal); L30.9 Dermatitis, unspecified
CPT/HCPCS: 99396

== ENCOUNTER 2024-03-05 15:02 | Outpatient (REF) | payer OTHER, SELFPAY ==
[2024-03-05 15:46] LABS: Hematocrit 44.5 % (42.0-52.0); Hemoglobin 14.7 g/dl (14.0-18.0); Mean Corpuscular Hemoglobin 28.2 pg (27.0-33.0); Mean Corpuscular Volume 85.2 fL (80.0-98.0); Mean Platelet Volume 10.7 fL (9.4-12.4); Platelet Count 191 X10*3/uL (160-400); Red Blood Count 5.22 X10*6/uL (4.60-5.80); Red Cell Distribution Width 13.2 % (11.0-16.0); White Blood Count 5.4 X10*3/uL (4.8-10.8)
[2024-03-05 16:25] LABS: Alanine Aminotransferase 17 U/L (0-40); Albumin Level 4.4 g/dL (3.5-5.0); Alkaline Phosphatase 66 U/L (39-117); Anion Gap 10 (12-20); Aspartate Amino Transferase 17 U/L (5-37); Bilirubin Direct 0.2 mg/dL (0.0-0.5); Bilirubin Total 0.6 mg/dL (0.0-1.0); Blood Urea Nitrogen 19 mg/dL (9-16); Calcium 9.9 mg/dL (8.4-10.2); Carbon Dioxide 30 mmol/L (22-29); Chloride 106 mmol/L (96-108); Cholesterol 260 mg/dL (<200); Estimated Glomerular Filt Rate > 60; Glucose Random 92 mg/dL (60-115); HDL Cholesterol 45 mg/dL (>40); LDL Cholesterol Calculated 191 mg/dL (<100); Potassium 4.2 mmol/L (3.3-5.1); Sodium 142 mmol/L (135-145); Total Protein 7.6 g/dL (6.5-8.0); Triglycerides 120 mg/dL (<150)
[2024-03-05 16:35] LABS: Appearance Urine Clear; Color Urine Yellow; Glucose Urine UA Negative (Negative); Leukocyte Esterase Urine Negative (Negative); Nitrite Urine Negative (Negative); PH 5.5 (5.0-9.0); Specific Gravity - Urine 1.025 (1.005-1.025); UMIC TRIGGER UA YES; Urine Blood Trace (Negative); Urine Ketones Negative (Negative); Urine Protein Negative (Neg-Trace)
[2024-03-05 16:41] LABS: Bacteria Urine None Seen (None Seen); Hyaline Casts Urine 0-2 /LPF (0-2); Squamous Epithelial Cell Urine 0-2 /HPF (0-2); WBC Urine 0-5 /HPF (0-5)
[2024-03-05 16:42] LABS: Thyroid Stimulating Hormone 1.43 uIU/mL (0.32-4.0)
== END 2024-03-05 15:03 | disposition home or self-care (01) ==
LOC: HO.LAB 15:02
PROVIDERS: PCP Internal Medicine; Visit Provider Internal Medicine
DX: E78.00 Pure hypercholesterolemia, unspecified (principal)
CPT/HCPCS: 36415; 80048; 80061; 80076; 81001; 84443; 85027